=== PATIENT | female | born 1985 | race Two or more races ===

== ENCOUNTER 2017-12-03 07:42 | Emergency (ER) | payer OTHER ==
[~2017-12-03] VITALS: Ht 149.9 cm; Wt 81.6 kg
--- NOTE | 2017-12-03 08:06 | Emergency Room Report ---
History of Present Illness General Chief Complaint: Dizziness Source: Patient Present Illness HPI The patient presents with 20 minutes of vertigo. She states it's more rotatory. It happened a year ago and lasted approximately one hour. She was given medication for dizziness and also nausea at that time. No workup was done at that time. She has vomiting and nausea. She denies any headache. She also broke out in sweats with the nausea and states this had happed last time. She denies any medical problems, alcohol, smoking. Her last period was a few weeks ago and normal for her. There's been no diarrhea. She denies any tinnitus or decreased hearing. She had a physical 2 months ago and states her MD told her all labs were "normal ". No muscle weakness, fevers, chills, cough, sore throat, joint pain, dysuria, change in bowels. 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 Period: 11/12/17 Reviewed Nursing Documentation: PMH: Agreed; PSxH: Agreed Nursing Documentation-PMH Past Medical History: No Stated History Review of Systems All Other Systems: negative except mentioned in HPI Physical Exam Vital Signs Date Time Temp Pulse Resp B/P (MAP) Pulse Ox O2 Delivery O2 Flow Rate FiO2 12/03/17 07:48 97.0 83 23 161/86 96 Room Air 97.0 Sp02 EP Interpretation: reviewed, normal General Appearance: well appearing, GCS 15, mild distress, other - diaphoretic but calm Head: normocephalic Eyes: bilateral eye normal inspection, bilateral eye PERRL, bilateral eye abnormal EOM - rotatory nystagmus ENT: moist mucus membranes Neck: supple Respiratory: lungs clear, normal breath sounds Cardiovascular #1: regular rate, rhythm Cardiovascular #2: 2+ radial (R) Gastrointestinal: normal inspection, normal bowel sounds, non tender, no mass, non-distended, overweight Genitourinary: no CVA tenderness Musculoskeletal: back normal, gait/station normal, normal range of motion Neurologic: alert, oriented x3, motor strength/tone normal, DTRs symmetric, sensory intact, other - rotatory nystagmus - rest of CN normal Psychiatric: mood/affect normal Skin: normal inspection, warm/dry Medical Decision Making Diagnostic Impression: Primary Impression: Vertigo Additional Impressions: Torsional nystagmus Sinusitis Qualified Codes: J32.0 - Chronic maxillary sinusitis ER Course The patient presents with vertigo and rotatory nystagmus. Differential includes labyrinthitis, cerebellar process, Mnire's disease amongst others. The patient will be treated with Zofran. Once that is in we will try Antivert by mouth also. Labs are ordered. Due to the fact this is rotatory nystagmus we need to exclude cerebellar and brainstem lesions. An MRI of the brain stem and the brain have been ordered (CT would not show demyelinating disease,) Labs remarkable for elevated WBC, ESR, normal H/H, elevated alk phos and minimally elevated glucose with proteinuria and elevated serum protein. MRI with maxillary sinusitis, no central lesions. Discussed findings with patient and need for follow up. Antibiotics not indicated. Given copy of labs and MRI. Remarkable improvement, but still with minimal dizziness with standing and ambulation. Patient stable for outpatient observation and treatment. Laboratory Tests Test 12/03/17 08:05 12/03/17 09:17 White Blood Count 14.7 K/UL (4.8-10.8) H Red Blood Count 5.22 M/UL (4.20-5.40) Hemoglobin 15.8 G/DL (12.0-16.0) Hematocrit 46.2 % (37.0-47.0) Mean Corpuscular Volume 88 FL (80-99) Mean Corpuscular Hemoglobin 30.2 PG (27.0-31.0) Mean Corpuscular Hemoglobin Concent 34.2 G/DL (32.0-36.0) Red Cell Distribution Width 11.6 % (11.6-14.8) Platelet Count 363 K/UL (150-450) Mean Platelet Volume 7.4 FL (6.5-10.1) Neutrophils (%) (Auto) 51.3 % (45.0-75.0) Lymphocytes (%) (Auto) 38.6 % (20.0-45.0) Monocytes (%) (Auto) 6.8 % (1.0-10.0) Eosinophils (%) (Auto) 2.2 % (0.0-3.0) Basophils (%) (Auto) 1.1 % (0.0-2.0) Erythrocyte Sedimentation Rate 35 MM/HR (0-20) H Prothrombin Time 9.6 SEC (9.30-11.50) Prothrombin Time INR 0.9 (0.9-1.1) PTT 24 SEC (23-33) Sodium Level 139 MMOL/L (136-145) Potassium Level 3.6 MMOL/L (3.5-5.1) Chloride Level 105 MMOL/L (98-107) Carbon Dioxide Level 24 MMOL/L (21-32) Anion Gap 10 mmol/L (5-15) Blood Urea Nitrogen 13 mg/dL (7-18) Creatinine 0.8 MG/DL (0.55-1.30) Estimate Glomerular Filtration Rate > 60 mL/min (>60) Glucose Level 137 MG/DL (74-106) H Calcium Level 9.4 MG/DL (8.5-10.1) Total Bilirubin 0.4 MG/DL (0.2-1.0) Aspartate Amino Transferase (AST) 22 U/L (15-37) Alanine Aminotransferase (ALT) 40 U/L (12-78) Alkaline Phosphatase 135 U/L (46-116) H Troponin I 0.000 ng/mL (0.000-0.056) Total Protein 8.5 G/DL (6.4-8.2) H Albumin 4.2 G/DL (3.4-5.0) Globulin 4.3 g/dL Albumin/Globulin Ratio 1.0 (1.0-2.7) Urine Color Pale yellow Urine Appearance Clear Urine pH 6 (4.5-8.0) Urine Specific [place] 1.020 (1.005-1.035) Urine Protein 3+ (NEGATIVE) H Urine Glucose (UA) Negative (NEGATIVE) Urine Ketones Negative (NEGATIVE) Urine Occult Blood Negative (NEGATIVE) Urine Nitrite Negative (NEGATIVE) Urine Bilirubin Negative (NEGATIVE) Urine Urobilinogen Normal MG/DL (0.0-1.0) Urine Leukocyte Esterase Negative (NEGATIVE) Urine RBC 2-4 /HPF (0 - 2) H Urine WBC 0-2 /HPF (0 - 2) Urine Squamous Epithelial Cells Occasional /LPF Urine Bacteria Few /HPF (NONE) Urine HCG, Qualitative Negative (NEGATIVE) EKG Diagnostic Results Rate: normal Rhythm: NSR ST Segments: no acute changes Rhythm Strip Diag. Results EP Interpretation: yes Rhythm: NSR, no PVC's, no ectopy CT/MRI/US Diagnostic Results CT/MRI/US Diagnostic Results : Imaging Test Ordered: MRI Impression R maxillary sinus disease and L polyp Last Vital Signs Date Time Temp Pulse Resp B/P (MAP) Pulse Ox O2 Delivery O2 Flow Rate FiO2 12/03/17 11:35 97.7 68 16 140/92 99 Room Air 97.6 Status: improved Disposition: HOME, SELF-CARE Condition: Improved Scripts Chlorpheniramine Maleate (CHLOR-TRIMETON) 4 Mg Tablet 4 MG PO Q6HR, #10 TAB Prov: Hira Lazaro M.D. 12/03/17 Meclizine Hcl* (MECLIZINE*) 25 Mg Tablet 25 MG ORAL THREE TIMES A DAY, #14 TAB Prov: Hira Lazaro M.D. 12/03/17 Ondansetron Odt* (ZOFRAN ODT*) 4 Mg Tab.rapdis 4 MG ORAL Q8H PRN for Nausea & Vomiting, #6 TAB 1 Refill Prov: Hira Lazaro M.D. 12/03/17 Hira Lazaro M.D. Dec 03, 2017 08:06
[2017-12-03 08:14] LABS: BASOPHILS % (AUTO) 1.1 % (0.0-2.0); EOSINOPHILS % (AUTO) 2.2 % (0.0-3.0); HEMATOCRIT 46.2 % (37.0-47.0); HEMOGLOBIN 15.8 G/DL (12.0-16.0); LYMPHOCYTES % (AUTO) 38.6 % (20.0-45.0); MEAN CORPUSCULAR VOLUME 88 FL (80-99); MONOCYTES % (AUTO) 6.8 % (1.0-10.0); NEUTROPHILS % (AUTO) 51.3 % (45.0-75.0); PLATELET COUNT 363 K/UL (150-450); RED BLOOD COUNT 5.22 M/UL (4.20-5.40); RED CELL DISTRIBUTION WIDTH 11.6 % (11.6-14.8); WHITE BLOOD COUNT 14.7 K/UL (4.8-10.8)
[2017-12-03 08:18] VITALS: BP 150/94
[2017-12-03] MEDS ORDERED: Meclizine 25mg tab ORAL STA (08:25)
[2017-12-03 08:28] LABS: ANION GAP 10 mmol/L (5-15); BLOOD UREA NITROGEN 13 mg/dL (7-18); CALCIUM 9.4 MG/DL (8.5-10.1); CARBON DIOXIDE 24 MMOL/L (21-32); CHLORIDE 105 MMOL/L (98-107); CREATININE 0.8 MG/DL (0.55-1.30); POTASSIUM 3.6 MMOL/L (3.5-5.1); SODIUM 139 MMOL/L (136-145)
[2017-12-03 08:33] LABS: ALANINE AMINOTRANSFERASE 40 U/L (12-78); ALBUMIN 4.2 G/DL (3.4-5.0); ALKALINE PHOSPHATASE 135 U/L (46-116); ASPARTATE AMINO TRANSFERASE 22 U/L (15-37); BILIRUBIN,TOTAL 0.4 MG/DL (0.2-1.0)
[2017-12-03 08:44] LABS: INR 0.9 (0.9-1.1)
[2017-12-03 09:25] LABS: APPEARANCE,URINE CLEAR; BILIRUBIN, URINE NEGATIVE (NEGATIVE); COLOR,URINE PALE YELLOW; GLUCOSE, URINE (UA) NEGATIVE (NEGATIVE); KETONES,URINE NEGATIVE (NEGATIVE); LEUKOCYTE ESTERASE ,URINE NEGATIVE (NEGATIVE); NITRITE,URINE NEGATIVE (NEGATIVE); PH,URINE 6 (4.5-8.0); PROTEIN,URINE 3+ (NEGATIVE); UROBILINOGEN,URINE NORMAL MG/DL (0.0-1.0)
--- NOTE | 2017-12-03 10:34 | Diagnostic Imaging Report ---
Indication: Reason For Exam: DIZZY Technique: sagittal T1 fast spin echo, axial T1 FLAIR, axial T2 FLAIR, axial T2 FS PROPELLER, axial T2* GRE, and coronal thin slice T1 and T2 fast spin echo images through the brainstem, axial diffusion weighted images. ADC and exponential ADC maps generated Comparison: none Findings: No abnormal areas of restricted diffusion to suggest acute infarction. No acute hemorrhage or edema. No mass effect nor midline shift. Normal size ventricles and extra axial CSF spaces. There is right maxillary sinus mucosal thickening. There is a left maxillary sinus polyp versus mucous retention cyst. The vascular flow voids are preserved. Impression: Essentially unremarkable exam. Negative for acute intracranial bleed, mass effect, or infarct Incidental finding of maxillary sinus disease
[2017-12-03 10:41] VITALS: BP 135/91
[2017-12-03] MEDS ORDERED: ZOFRAN ODT4 MG ORAL (11:18)
[2017-12-03] MEDS ORDERED: CHLOR-TRIMETON4 MG PO (11:18)
[2017-12-03] MEDS ORDERED: MECLIZINE HCL25 MG ORAL (11:18)
[2017-12-03 11:35] VITALS: BP 140/92
--- NOTE | 2017-12-04 17:31 | Cardiology Report ---
APPROVED REPORT EKG Measurement Heart [id number] Normal sinus rhythm Normal ECG
== END 2017-12-03 11:35 | disposition home or self-care (01) ==
LOC: EMR 08:32 → EEVIPCON 08:32 → EMR 11:35
DX: R42 Dizziness and giddiness (principal); H55.09 Other forms of nystagmus; J32.0 Chronic maxillary sinusitis
CPT/HCPCS: 36415; 70551; 80053; 81003; 81025; 84484; 85025; 85610; 85651; 85730; 93005; 96361; 96374; 99284; J2405